=== PATIENT | male | born 1995 | race American Indian/Alaskan Native ===

== ENCOUNTER 2020-06-30 03:27 | Emergency (ER) | payer SELFPAY ==
[2020-06-30 04:56] LABS: Basophils % (Auto) 0.4 % (0.0-1.8); Eosinophils # (Auto) 0.1 K/mm3 (0.0-0.4); Eosinophils % (Auto) 0.7 % (0.0-4.3); Hematocrit 34.4 % (35.5-45.6); Hemoglobin 12.2 gm/dl (11.8-15.2); Lymphocytes # (Auto) 2.2 K/mm3 (1.2-5.4); Mean Corpuscular HGB Conc 35 % (32-34); Mean Corpuscular Volume 88 fl (84-94); Monocytes # (Auto) 0.7 K/mm3 (0.0-0.8); Platelet Count 444 K/mm3 (140-440); Red Blood Count 3.91 M/mm3 (3.65-5.03)
[2020-06-30 05:15] LABS: Alanine Aminotransferase 13 units/L (7-56); Albumin 4.6 g/dL (3.9-5); BUN/Creatinine Ratio 11; Blood Urea Nitrogen 9 mg/dL (9-20); Calcium 10.1 mg/dL (8.4-10.2); Hemolysis Index 12
[2020-06-30] MEDS ORDERED: KETOROLAC 30 MG/1 ML INJ IM ONE (09:37)
--- NOTE | 2020-06-30 09:40 | Emergency Department Report ---
ED General Adult HPI - General Chief complaint: Sickle Cell Crisis Stated complaint: SICKLE CELL PAIN Time Seen by Provider: 06/30/20 09:14 Source: patient Mode of arrival: Ambulatory Limitations: No Limitations - History of Present Illness Initial comments: Patient is a 24-year-old male with history of sickle cell anemia presents emergency department for evaluation of 6 to 12 hours of dull, intermittent low back pain and left arm pain consistent with previous sickle cell crises. Patient notes he is compliant with hydroxyurea and folic acid, noting he does not have a primary care doctor in local area as he recently relocated from [place]. Patient denies cough, denies fever, denies chest pain, denies dysuria. - Related Data Allergies Allergy/AdvReac Type Severity Reaction Status Date / Time No Known Allergies Allergy Unverified 06/30/20 03:47 ED Review of Systems ROS: Stated complaint: SICKLE CELL PAIN Other details as noted in HPI Comment: All other systems reviewed and negative ED Past Medical Hx - Past Medical History Previous Medical History?: Yes Hx Sickle Cell Disease: Yes - Surgical History Past Surgical History?: No - Social History Smoking Status: Never Smoker Substance Use Type: None ED Physical Exam - General Limitations: No Limitations General appearance: alert, in no apparent distress - Head Head exam: Present: atraumatic, normocephalic - Eye Eye exam: Present: normal appearance - ENT ENT exam: Present: mucous membranes moist - Neck Neck exam: Present: normal inspection - Respiratory Respiratory exam: Present: normal lung sounds bilaterally. Absent: respiratory distress - Cardiovascular Cardiovascular Exam: Present: regular rate, normal rhythm. Absent: systolic murmur, diastolic murmur, rubs, gallop - GI/Abdominal GI/Abdominal exam: Present: soft, normal bowel sounds - Rectal Rectal exam: Present: deferred - Extremities Exam Extremities exam: Present: normal inspection - Back Exam Back exam: Present: normal inspection - Neurological Exam Neurological exam: Present: alert, oriented X3 - Psychiatric Psychiatric exam: Present: normal affect, normal mood - Skin Skin exam: Present: warm, dry, intact, normal color. Absent: rash ED Course Vital Signs 06/30/20 06/30/20 03:39 09:07 Temperature 98.7 F 98.3 F Pulse Rate 98 H 87 Respiratory 20 18 Rate Blood Pressure 110/74 133/78 O2 Sat by Pulse 100 100 Oximetry - Reevaluation(s) Reevaluation #1: 06/30/20 09:40 Patient treated with Toradol IM x1 Reevaluation #2: 06/30/20 10:21 Patient specifically requesting morphine, given 4 mg IV morphine and 1 L IV normal saline x1. ED Medical Decision Making - Lab Data Result diagrams: 06/30/20 04:12 06/30/20 04:12 Vital Signs 06/30/20 06/30/20 03:39 09:07 Temperature 98.7 F 98.3 F Pulse Rate 98 H 87 Respiratory 20 18 Rate Blood Pressure 110/74 133/78 O2 Sat by Pulse 100 100 Oximetry Lab Results 06/30/20 06/30/20 Range/Units 04:12 04:12 WBC 10.4 (4.5-11.0) K/mm3 RBC 3.91 (3.65-5.03) M/mm3 Hgb 12.2 (11.8-15.2) gm/dl Hct 34.4 L (35.5-45.6) % MCV 88 (84-94) fl MCH 31 (28-32) pg MCHC 35 H (32-34) % RDW 17.0 H (13.2-15.2) % Plt Count 444 H (140-440) K/mm3 Lymph % (Auto) 21.0 (13.4-35.0) % [place] % (Auto) 7.0 (0.0-7.3) % Eos % (Auto) 0.7 (0.0-4.3) % Baso % (Auto) 0.4 (0.0-1.8) % Lymph # (Auto) 2.2 (1.2-5.4) K/mm3 [place] # (Auto) 0.7 (0.0-0.8) K/mm3 Eos # (Auto) 0.1 (0.0-0.4) K/mm3 Baso # (Auto) 0.0 (0.0-0.1) K/mm3 Seg Neutrophils % 70.9 H (40.0-70.0) % Seg Neutrophils # 7.4 (1.8-7.7) K/mm3 Percent Retic 3.10 H (0.78-2.58) % Sodium 137 (137-145) mmol/L Potassium 4.1 (3.6-5.0) mmol/L Chloride 98.2 (98-107) mmol/L Carbon Dioxide 24 (22-30) mmol/L Anion Gap 19 mmol/L BUN 9 (9-20) mg/dL Creatinine 0.8 (0.8-1.3) mg/dL Estimated GFR > 60 ml/min BUN/Creatinine Ratio 11 % Glucose 110 H (75-100) mg/dL Calcium 10.1 (8.4-10.2) mg/dL Total Bilirubin 1.10 (0.1-1.2) mg/dL AST 19 (5-40) units/L ALT 13 (7-56) units/L Alkaline Phosphatase 88 (35-129) units/L Total Protein 7.9 (6.3-8.2) g/dL Albumin 4.6 (3.9-5) g/dL Albumin/Globulin Ratio 1.4 % - Radiology Data Radiology results: report reviewed Ordering Physician: GOPAL GOLDBERG MD Date of Service: 06/30/20 Procedure(s): XR chest 1V ap Accession Number(s): [id number] cc: GOPAL GOLDBERG MD Fluoro Time In Minutes: CHEST 1 VIEW 06/30/2020 9:15 AM INDICATION / CLINICAL INFORMATION: weakness,SICKLE CELL CRISIS. COMPARISON: None available. FINDINGS: SUPPORT DEVICES: None. HEART / MEDIASTINUM: No significant abnormality. LUNGS / PLEURA: No significant pulmonary or pleural abnormality. No pneumothorax. No confluent infiltrate or pleural effusion. ADDITIONAL FINDINGS: No significant additional findings. IMPRESSION: 1. No acute findings. Signer Name: Hyun Mike MD Signed: 06/30/2020 9:36 AM Workstation Name: [id number] Transcribed By: Dictated By: HYUN MIKE Electronically Authenticated By: HYUN MIKE Signed Date/Time: 06/30/20 0936 Critical care attestation.: If time is entered above; I have spent that time in minutes in the direct care of this critically ill patient, excluding procedure time. ED Disposition Clinical Impression: Low back pain Disposition: DC-01 TO HOME OR SELFCARE Is pt being admited?: No Does the pt Need Aspirin: No Condition: Stable Instructions: Chronic Back Pain Referrals: PRIMARY CARE, [Primary Care Provider] - 3-5 Days
[2020-06-30] MEDS ORDERED: MORPHINE 4 MG/1 ML INJ IV ONE (10:05)
[2020-06-30] MEDS ORDERED: SODIUM CHLORIDE 0.9% 1000 ML 1,000 ML IV ONE (10:07)
[2020-06-30 11:45] VITALS: BP 145/89
== END 2020-06-30 11:11 | disposition home or self-care (01) ==
LOC: ED 03:27
DX: M54.5 Low back pain (principal)
CPT/HCPCS: 36415; 71045; 80053; 85025; 85045; 96361; 96372; 96374; 99284; J1885; J2270; J7030